=== PATIENT | male | born 1980 | race Caucasian/White ===

== ENCOUNTER 2018-12-18 18:24 | Emergency (ER) | payer MEDICAID ==
[~2018-12-18] VITALS: Ht 166.4 cm; Wt 75.7 kg
[2018-12-18 18:33] VITALS: Ht 166.4 cm; Wt 75.7 kg
[2018-12-18] MEDS ORDERED: IBUP-1542 PO (21:40)
[2018-12-18 21:55] VITALS: BP 109/70; PULSE 78; RESP 16
--- NOTE | 2018-12-19 04:03 | ERD ---
ER Documentation Chief Complaint Chief Complaint R rib pain w/palpable bump x 3 days, no trauma HPI 38-year-old male presents to the emergency department complaining of movable, soft lump noted to the right mid ribs for the past 2 months which has increased in size. He reports pain only while sleeping. He tried [id number] medication with some relief. He denies any shortness of breath, hemoptysis, fevers, chills, or other symptoms at this time. ROS All systems reviewed and are negative except as per history of present illness. Medications Home Meds Active Scripts Ibuprofen* (Motrin*) 600 Mg Tab, 600 MG PO Q6, #30 TAB Prov:PRESTON FAUSTIN PA-C 12/18/18 Allergies Allergies: Coded Allergies: No Known Allergy (Unverified , 08/15/14) PMhx/Soc History of Surgery: Yes (Colon SX) Anesthesia Reaction: No Hx Neurological Disorder: No Hx Respiratory Disorders: No Hx Cardiac Disorders: No Hx Psychiatric Problems: No Hx Miscellaneous Medical Probl: No Hx Alcohol Use: No Hx Substance Use: No Hx Tobacco Use: No Smoking Status: Never smoker FmHx Family History: No diabetes Physical Exam Vitals Vital Signs Date Temp Pulse Resp B/P (MAP) Pulse Ox O2 O2 Flow FiO2 Time Delivery Rate 12/18/18 98.0 78 16 109/70 99 Room Air 21:55 (83) 12/18/18 98.3 92 18 142/99 99 18:33 (113) Physical Exam Const: No acute distress Head: Atraumatic Eyes: Normal Conjunctiva ENT: Normal External Ears, Nose and Mouth. Neck: Full range of motion. No meningismus. Resp: Clear to auscultation bilaterally Cardio: Regular rate and rhythm, no murmurs Skin: Freely movable, soft, approximate 5 cm x 5 cm mass noted to the right mid ribs with mild associated tenderness palpation. Back: No midline or flank tenderness Ext: No cyanosis, or edema Neur: Awake and alert Psych: Normal Mood and Affect Results [address] [address] Radiology Main Line: [phone] DIAGNOSTIC IMAGING REPORT Patient: LALITA GUIDO : 1980 Age: 38 Sex: M MR #: [id number] DOS: 12/18/18 0000 Ordering MD: PRESTON FAUSTIN PA-C Location: [facility] Room/Bed: PROCEDURE: US chest. CLINICAL INDICATION: Right chest wall mass TECHNIQUE: Multiple real-time images were acquired of the appropriate region of the patient's chest utilizing a high resolution transducer. Images were interpreted on a PACS workstation. COMPARISON: None FINDINGS: Images demonstrate a well-defined lenticular shaped subcutaneous lesion with echotexture typical of a lipoma. This has a long axis of 3.8 cm in central thickness of 6 mm. On color-flow imaging, the lesion is avascular. IMPRESSION: 1. Subcutaneous lesion with an appearance typical of a benign lipoma. RPTAT:AAJJ Physician Marty Date Time Electronically viewed and signed by Physician Marty on 12/18/2018 21:34 GW/ CC: PRESTON FAUSTIN PA-C [id number] Procedures/MDM 38-year-old male presents to the emergency department with signs and symptoms and work-up most consistent with fatty lipoma of the right mid ribs. No evidence of emergent pathology. Patient will be discharged home with copies of imaging results and advised to follow-up with general surgeon and return to the department immediately for any new or worsening or concerning symptoms. He understands and agrees with plan. Patient's blood pressure was elevated (>120/80) but appears stable without evidence of hypertension emergency or urgency. The patient is to follow-up and pursue outpatient monitoring and therapy with their primary care physician within 1 week and return immediately if they have any new, worsening, or concerning symptoms. Departure Diagnosis: Primary Impression: Lipoma Condition: Fair Patient Instructions: Lipoma [facility] Usted se potts hecho un examen mdico de control que le indica que no est en jazmine condicin que requiera tratamiento urgente en el Departamento de Emergencia. Un estudio ms profundo y el tratamiento de correa condicin pueden esperar sin ningn riesgo hasta que usted sea atendida/o en el consultorio de correa mdico o jazmine clnica. Es responsabilidad suya arreglar jazmine stu para el seguimiento del alfonzo. MANEJO DE CONDICIONES NO URGENTES EN EL FUTURO 1) Si usted tiene un mdico de atencin primaria: Usted debera llamar a correa mdico de atencin primaria antes de venir al departamento de emergencia. Despus de las horas de consultorio, correa doctor o correa asociado/a est disponible por telfono. El mdico o enfermero de saman en el servicio telefnico puede asesorarle por sean medio para atender el problema, o alfonzo contrario se puede programar jazmine stu. 2) Si usted no tiene un mdico de atencin primaria: Llame al mdico o clnica de referencia que aparece abajo durga las horas de consultorio para hacer jazmine stu para que le vean. CLINICAS: [facility] [phone] [facility] [phone] [address] [facility]. [facility] [phone] [facility]. [facility] [phone] [address] [facility] [place] [id number] [phone] [facility]. [phone] [address] Additional Instructions: Specialist:Usted tiene jazmine condicin mdica que requiere que renetta a un especialista dentro de los prximos 1-2 burns.POR FAVOR,CON CORREA SEGUIMIENTO DE PRIMARIA PHSICIAN refferal. SI USTED NO TIENE UN MDICO GENERAL Y / O USTED NO PUEDE PAGAR gisela a un mdico,los siguientes turner RECURSOS sido suministrado a usted. ES CORREA RESPONSABILIDAD PARA SER VISTOS POR EL ESPECIALISTA: GENERAL SURGEON PRESTON FAUSTIN PA-C Dec 19, 2018 04:02
== END 2018-12-18 21:55 | disposition home or self-care (01) ==
LOC: FTE 18:24
DX: D17.1 Benign lipomatous neoplasm of skin and subcutaneous tissue of trunk (principal)
CPT/HCPCS: 71100; 76536; Z7502